=== PATIENT | male | born 1950 | race Caucasian/White ===

== ENCOUNTER 2024-04-22 12:17 | Emergency (ER) | payer MEDICARE, OTHER ==
[~2024-04-22] VITALS: Ht 185.4 cm; Wt 93.0 kg
[2024-04-22 12:49] LABS: BASOPHILS PERCENT AUTO 1 % (0-2); EOSINOPHILS ABSOLUTE AUTO 0.29 K/mm3 (0.00-0.68); EOSINOPHILS PERCENT AUTO 3 % (0-6); Hematocrit 35.2 % (37.0-53.0); Hemoglobin 11.5 g/dL (13.5-17.5); IMMATURE GRAN ABSOLUTE AUTO 0.05 K/mm3 (0.00-0.10); IMMATURE GRAN PERCENT AUTO 1 % (0-1); LYMPHOCYTES ABSOLUTE AUTO 2.27 K/mm3 (0.84-5.20); LYMPHOCYTES PERCENT AUTO 26 % (21-46); MONOCYTES ABSOLUTE AUTO 0.63 K/mm3 (0.16-1.47); MONOCYTES PERCENT AUTO 7 % (4-13); Mean Corpuscular HGB 31.3 pg (26.0-34.0); Mean Corpuscular HGB Conc 32.7 g/dL (31.5-36.5); Mean Corpuscular Volume 96 fL (80-100); Mean Platelet Volume 9.6 fL (9.1-12.4); NEUTROPHILS ABSOLUTE AUTO 5.47 K/mm3 (1.96-9.15); NEUTROPHILS PERCENT AUTO 62 % (41-73); Platelet Count 250 K/mm3 (150-400); RDW Coefficient Variation 13.7 % (11.7-14.2); RDW Standard Deviation 48.6 fL (35.1-46.3); Red Blood Cell Count 3.67 M/mm3 (4.30-5.90); White Blood Cell Count 8.81 K/mm3 (4.00-11.30)
[2024-04-22 13:09] LABS: Albumin, Blood 3.6 g/dL (3.4-5.0); Albumin/Globulin Ratio 0.9 (0.8-1.8); Bilirubin, Total 0.2 mg/dL (0.1-1.0); Bun/Creatinine Ratio 44.8 (12.0-20.0); Calcium, Blood 9.7 mg/dL (8.5-10.1); Creatinine, Blood 1.54 mg/dL (0.60-1.20); Globulin, Blood 4.2 g/dL (2.2-4.0); Magnesium, Blood 1.7 mg/dL (1.6-2.4); Potassium, Blood 5.7 mmol/L (3.5-5.5); Total Protein, Blood 7.8 g/dL (6.4-8.2)
[2024-04-22] MEDS ORDERED: PRED FORTE5 M1 LEFTEYE (13:09)
[2024-04-22] MEDS ORDERED: Insulin Regular 100 Unit/ML 1ML Dose IV ONE (13:20)
[2024-04-22] MEDS ORDERED: NS 1,000 ML IV SCH (13:20)
[2024-04-22] MEDS ORDERED: FENO48 PO (13:59)
[2024-04-22] MEDS ORDERED: INSULIN GL100 UNIT/1 SC (14:00)
[2024-04-22] MEDS ORDERED: Lisinopril2.5 MG PO (14:00)
[2024-04-22] MEDS ORDERED: METF500 PO (14:00)
[2024-04-22] MEDS ORDERED: SPIR25 PO (14:01)
[2024-04-22] MEDS ORDERED: METO100ER PO (14:01)
[2024-04-22] MEDS ORDERED: XARELTO15 MG PO (14:01)
[2024-04-22 15:13] LABS: Bun/Creatinine Ratio 44.5 (12.0-20.0); Calcium, Blood 9.2 mg/dL (8.5-10.1); Creatinine, Blood 1.46 mg/dL (0.60-1.20); Potassium, Blood 5.4 mmol/L (3.5-5.5)
== END 2024-04-22 15:49 | disposition home or self-care (01) ==
LOC: ER 12:17
PROVIDERS: Emergency Medicine; Physician Assistant
DX: E11.65 Type 2 diabetes mellitus with hyperglycemia (principal); E87.5 Hyperkalemia; N28.9 Disorder of kidney and ureter, unspecified; Z87.891 Personal history of nicotine dependence; I48.91 Unspecified atrial fibrillation; E78.5 Hyperlipidemia, unspecified; I10 Essential (primary) hypertension
CPT/HCPCS: 36415; 80048; 80053; 80061; 83036; 83735; 85025; 86803; 93005; 93010; 96360; 99283-25; J1815; J7030